=== PATIENT | male | born 1985 | race Caucasian/White ===

== ENCOUNTER 2020-11-19 20:23 | Emergency (ER) | payer OTHER ==
[~2020-11-19 20:23] MED LIST: ATARAX25 MG PO; BACTRIM DS TAB1 EACH PO; NORCO 5-325 TA1 EACH PO; PREDNISONE 20MG20 MG PO; ULTRAM50 MG PO
[2020-11-19] MEDS ORDERED: KEFLEX250 MG PO (21:54)
== END 2020-11-19 22:02 | disposition home or self-care (01) ==
LOC: FER 20:23
DX: S61.411A Laceration without foreign body of right hand, initial encounter (principal); W26.8XXA Contact with other sharp object(s), not elsewhere classified, initial encounter; Y92.009 Unspecified place in unspecified non-institutional (private) residence as the place of occurrence of the external cause
CPT/HCPCS: 73120

== ENCOUNTER 2021-10-06 19:53 | Emergency (ER) | payer OTHER ==
[~2021-10-06 19:53] MED LIST changes: +KEFLEX250 MG PO
[2021-10-06] MEDS ORDERED: CEPHALEXIN500 MG PO (21:14)
== END 2021-10-06 21:50 | disposition home or self-care (01) ==
LOC: FER 19:53
DX: S61.202D Unspecified open wound of right middle finger without damage to nail, subsequent encounter (principal); I10 Essential (primary) hypertension; W45.8XXD Other foreign body or object entering through skin, subsequent encounter
CPT/HCPCS: 99282

== ENCOUNTER 2022-03-29 19:05 | Emergency (ER) | payer OTHER ==
[~2022-03-29 19:05] MED LIST changes: +CEPHALEXIN500 MG PO
[2022-03-29] MEDS ORDERED: IBUPROFEN800 M1 PO (21:21)
== END 2022-03-29 21:39 | disposition home or self-care (01) ==
LOC: FER 19:05
DX: S90.32XA Contusion of left foot, initial encounter (principal); Y92.009 Unspecified place in unspecified non-institutional (private) residence as the place of occurrence of the external cause; W31.89XA Contact with other specified machinery, initial encounter; Y93.89 Activity, other specified
CPT/HCPCS: 73600; 73620